=== PATIENT | female | born 1945 | race Caucasian/White ===

== ENCOUNTER 2020-08-10 16:22 | Outpatient (CLI) | payer OTHER, SELFPAY ==
--- NOTE | ~2020-08-10 | MM_ITS ---
EXAMINATION: MM screening bhaskar BI w kelvin HISTORY: Screening mammogram TECHNIQUE: Craniocaudal and mediolateral oblique 3-D tomosynthesis images were obtained and synthetic 2-D images were generated. Right rotated lateral cc view. CAD analysis was submitted and interpreted . COMPARISON: 07/30/2019 bilateral diagnostic digital mammogram and Limited bilateral breast ultrasound 07/28/2019, 07/14/2018, 07/09/2017 bilateral digital screening mammogram examinations BREAST PARENCHYMAL COMPOSITION: There are scattered areas of fibroglandular density. FINDINGS: Occasional benign calcifications. There is no evidence of suspicious mass, calcification, o r architectural distortion to suggest malignancy in either breast. There has been no suspicious inter francesco change. IMPRESSION: 1. No mammographic evidence of malignancy. 2. Recommend routine screening mammography in one year. BI-RADS Category 2: Benign finding(s). Reviewed, dictated and finalized at location A. STANT NURSE MANAGER
== END 2020-08-10 16:23 | disposition home or self-care (01) ==
LOC: ANHIMG 16:28
PROVIDERS: PCP Emergency Medicine; Visit Provider Emergency Medicine
DX: Z12.31 Encounter for screening mammogram for malignant neoplasm of breast (principal)
CPT/HCPCS: 77063; 77067

== ENCOUNTER 2020-08-15 16:12 | Emergency (ER) | payer OTHER, SELFPAY ==
--- NOTE | ~2020-08-15 | XR_ITS ---
EXAMINATION: XR tibia fibula RT 2V INDICATION: Bilateral knee pain TECHNIQUE: Two views of the right tibia and fibula are obtained on three radiographs. COMPARISON: None available FINDINGS: There is mild irregularity of the lateral tibial plateau which extends to the tibial spine. A large knee joint effusion is present. No additional acute osseous abnormality is identified. IMPRESSION: 1. Likely mildly depressed lateral tibial plateau fracture with large joint effusion. Reviewed, dictated and finalized at location A. K PACKER IMPRESSION: 1. Likely mildly depressed lateral tibial plateau fracture with large joint eff usion.
--- NOTE | ~2020-08-15 | XR_ITS ---
EXAMINATION: XR knee RT min 4V DATE: 08/15/2020 17:50 INDICATION: Lateral knee pain, initial encounter TECHNIQUE: Four views of the right knee were obtained. COMPARISON: 11/25/2018 FINDINGS: There is mild irregularity of the lateral tibial plateau which extends to the tibial spine. A large knee joint effusion is present. There is mild osteoarthritis of the knee. IMPRESSION: 1. Likely mildly depressed lateral tibial plateau fracture with large joint effusion. Reviewed, dictated and finalized at location A. TER PILOT IMPRESSION: 1. Likely mildly depressed lateral tibial plateau fracture with large joint eff usion.
[2020-08-15 16:14] VITALS: BP 135/85; PULSE 71; RESP 16; O2SAT 100
--- NOTE | 2020-08-15 16:15 | ED.LOWEXIN ---
HPI - Extremity Injury (Lower) General Chief Complaint: Extremity Injury, Lower Stated Complaint: fall R knee injury Time Seen by Provider: 08/15/20 16:15 Source: patient Mode of arrival: EMS Limitations: no limitations History of Present Illness HPI Narrative: Patient presents via EMS for evaluation of a ground level fall. Patient was standing on a stepstool in the bathroom when she lost her footing as the stool began to move. Patient denies any associated chest pain, palpitations, lightheadedness or dizziness, now reporting right knee pain only. Pt did not hit her head, no LOC. Pt able to wait for her to get home, and then EMS was called to transport her to the hospital. Pain is described as constant, severe pain in her right knee. Radiated into the back of knee. No bruising. No history of injury to this knee in the past. Related Data Home Medications Medication Instructions Recorded Confirmed alprazolam 0.5 mg tablet 0.5 mg PO BID PRN 08/17/19 Allergies Allergy/AdvReac Type Severity Reaction Status Date / Time No Known Allergies Allergy Verified 08/15/20 16:19 Review of Systems Review of Systems: Narrative: CONSTITUTIONAL: Denies fever CARDIOVASCULAR: Denies chest pain RESPIRATORY: Denies cough or dyspnea. GASTROINTESTINAL: Denies abdominal pain SKIN: Denies rash MUSCULOSKELETAL: Denies back pain, denies hip pain, reports right knee pain NEUROLOGIC: Denies headache PMFSH Past Medical History Medical History (Updated 08/15/20 @ 18:51 by Roopa Trinidad MD) HLD (hyperlipidemia) Osteoporosis Family History Family History Mother Family history of congestive heart failure, Onset Age: 75 Other Diabetes mellitus Family history of heart disease in male family member before age 55 Hypertension Social History Social History Smoking status: Never smoker Alcohol intake: never Exam Narrative: Exam Narrative: GENERAL: Awake, alert, conversant HEAD: Normocephalic, atraumatic. EYES: PERRLA and EOMI. ENT: Nares clear, no rhinorrhea or epistaxis. Mucous membranes moist. NECK: Supple. CHEST: No respiratory distress, breathing even and non labored HEART: Regular rate, sinus rhythm ABDOMEN:Non distended, non tender EXTREMITIES: Limited active ROM in the right knee due to pain. Mild edema, no ecchymoses or laceration. Patella is midline. SKIN: Warm, dry, no rash. NEURO:No focal deficits. Alert and oriented x3 Course Vital Signs Vital signs: Vital Signs Pulse Rate 71 08/15/20 16:14 Respiratory Rate 16 08/15/20 16:14 Blood Pressure 135/85 08/15/20 16:14 Pulse Oximetry 100 08/15/20 16:14 Pulse Rate 71 08/15/20 16:14 Respiratory Rate 16 08/15/20 16:14 Blood Pressure 135/85 08/15/20 16:14 Pulse Oximetry 100 08/15/20 16:14 MDM - Extremity Injury (Lower) MDM Narrative Medical decision making narrative: Patient with a mild tibial plateau fracture of the right knee from fall. Patient placed in a new immobilizer. Dr. Hernandez was called, imaging discussed, patient is okay to follow-up in office. Patient neurovascularly intact. Was discharged home in knee immobilizer with crutches. Differential Diagnosis Differential diagnosis: Likely acute internal derangement of knee Imaging Data Radiologist's impression: ITS Impressions Knee X-Ray 08/15/20 18:25 IMPRESSION: 1. Likely mildly depressed lateral tibial plateau fracture with large joint effusion. Tibia/Fibula X-Ray 08/15/20 18:29 IMPRESSION: 1. Likely mildly depressed lateral tibial plateau fracture with large joint effusion. Discharge Plan Discharge Clinical Impression: Fracture of tibial plateau, closed Qualifiers: Encounter type: initial encounter Laterality: right Qualified Code(s): S82.141A - Displaced bicondylar fracture of right tibia, initial encounter
[2020-08-15] MEDS: ONDANSETRON INJ 4 MG/2 ML VIAL IV PUSH (17:15)
[2020-08-15] MEDS: MORPHINE SULFATE (*CRX) 4 MG/ML INJ IV PUSH (17:16)
[2020-08-15] MEDS: SODIUM CHLORIDE 0.9% IV 1,000 ML 999 ML IV CONT (17:16)
[2020-08-15 19:41] VITALS: BP 120/71; PULSE 74; RESP 18; O2SAT 100
== END 2020-08-15 19:43 | disposition home or self-care (01) ==
PROVIDERS: Emergency Provider Emergency Medicine; PCP Emergency Medicine
DX: S82.141A Displaced bicondylar fracture of right tibia, initial encounter for closed fracture (principal); E78.5 Hyperlipidemia, unspecified; M81.0 Age-related osteoporosis without current pathological fracture; W17.89XA Other fall from one level to another, initial encounter
CPT/HCPCS: 73564; 73590; 96361; 96374; 96375; 99284; J2270; J2405; J7030

== ENCOUNTER 2021-02-13 11:45 | Outpatient (CLI) | payer OTHER, SELFPAY ==
--- NOTE | ~2021-02-13 | US_ITS ---
EXAMINATION:US venous doppler LE RT INDICATION:Right leg swelling TECHNIQUE: Multiple grayscale, color flow and Doppler images of the right lower extremity deep venous systems were obtained and reviewed. COMPARISON:No prior studies for comparison FINDINGS: The common femoral, superficial femoral and popliteal veins demonstrate normal respiratory variation, augmentation and compressibility. Color flow is also seen within the posterior tibial, pe roneal, greater saphenous and profunda veins. IMPRESSION: 1: No lower extremity deep venous thrombosis. Reviewed, dictated and finalized at location B.
== END 2021-02-13 11:46 | disposition home or self-care (01) ==
LOC: ANHIMG 11:46
PROVIDERS: PCP Emergency Medicine; Visit Provider Emergency Medicine
DX: M79.604 Pain in right leg (principal); R60.9 Edema, unspecified
CPT/HCPCS: 93971

== ENCOUNTER 2021-09-18 16:03 | Outpatient (CLI) | payer OTHER, SELFPAY ==
--- NOTE | ~2021-09-18 | MM_ITS ---
EXAMINATION: MM screening bhaskar BI w kelvin HISTORY: Screening TECHNIQUE: Craniocaudal and mediolateral oblique 3-D tomosynthesis images were obtained and synthetic 2-D images were generated. CAD analysis was submitted and interpreted. COMPARISON: Comparison to multiple prior studies sequentially, with oldest reviewed study dated 12/2015. BREAST PARENCHYMAL COMPOSITION: There are scattered areas of fibroglandular density. FINDINGS: There are developing asymmetries in the lower inner quadrant of the right breast, middle th ird. The left breast is stable without evidence for malignancy. IMPRESSION: 1. Developing right breast asymmetries. 2. Additional mammographic views and possible breast ultrasound are recommended. BI-RADS Category 0: Incomplete: Needs additional imaging evaluation. Reviewed, dictated and finalized at location A. IT NEGOTIATOR IMPRESSION: 1. Developing right breast asymmetries. 2. Additional mammographic views and possible breast ultrasound are recommended . BI-RADS Category 0: Incomplete: Needs additional imaging evaluation.
== END 2021-09-18 16:04 | disposition home or self-care (01) ==
PROVIDERS: PCP Emergency Medicine; Visit Provider Emergency Medicine
DX: Z12.31 Encounter for screening mammogram for malignant neoplasm of breast (principal); R92.8 Other abnormal and inconclusive findings on diagnostic imaging of breast
CPT/HCPCS: 77063; 77067

== ENCOUNTER 2021-10-12 12:05 | Outpatient (CLI) | payer OTHER, SELFPAY ==
--- NOTE | ~2021-10-12 | MMUS_ITS ---
EXAMINATION: MM diagnostic bhaskar RT w kelvin, US breast RT limited HISTORY: Developing right breast asymmetries reported on 09/18/2020 screening mammogram examination TECHNIQUE: Additional 3-D tomosynthesis images of the right breast were performed and synthetic 2-D i mages were generated. CAD analysis was submitted and interpreted. High resolution upper inner and low er inner right breast ultrasound was performed. COMPARISON: 09/18/2021, 08/10/2020 bilateral screening mammogram examinations FINDINGS: MAMMOGRAPHIC FINDINGS: A new 5 mm mass is present in the lower mid right breast slightly medial to the mid sagittal plane. ULTRASOUND: 12:00 2 cm from nipple: Parallel circumscribed hypoechoic approximately 2.1 x 5.7 x 4.5 mm hypoechoic lesion with central fatty density, likely a small lymph node. 5- 6:00 1 cm from nipple: There is an irregular antiparallel hypoechoic lesion with posterior shadowi ng, measuring up to 3.7 mm width, 4.7 mm in depth. Ultrasound-guided biopsy is recommended. IMPRESSION: 1. Suspicious antiparallel irregular hypoechoic up to 5.7 mm mass at 5-6:00 1 cm from nipple 2. Ultrasound-guided biopsy is recommended BI-RADS category 4, suspicious findings. Dr. Rashid telephoned the report and ultrasound guided biopsy recommendation on 10/12/[address] Live' answering service, with request for callback to confirm receipt of the report and biop sy recommendation. Reviewed, dictated and finalized at location B. OING INSPECTOR IMPRESSION: 1. Suspicious antiparallel irregular hypoechoic up to 5.7 mm mass at 5-6:00 1 c m from nipple 2. Ultrasound-guided biopsy is recommended BI-RADS category 4, suspicious findings. Dr. Rashid telephoned the report and ultrasound guided biopsy recommendation on at [address] Live' answering service, with request for callba ck to confirm receipt of the report and biopsy recommendation.
== END 2021-10-12 12:06 | disposition home or self-care (01) ==
PROVIDERS: PCP Emergency Medicine; Visit Provider Emergency Medicine
DX: N64.89 Other specified disorders of breast (principal); N63.15 Unspecified lump in the right breast, overlapping quadrants
CPT/HCPCS: 76642; 77061; 77065; G0279

== ENCOUNTER 2021-10-18 08:49 | Outpatient (CLI) | payer OTHER, SELFPAY ==
--- NOTE | ~2021-10-18 | US_ITS ---
EXAMINATION: Consultation US HISTORY: Patient presents for biopsy of a right breast mass TECHNIQUE: Limited right breast ultrasound is performed. FINDINGS: The mass described at the 6:00 location on recent diagnostic workup appears to be contiguou s with a duct near the nipple on the right breast and is anechoic, likely a benign finding. With real -time scanning, a similar finding was seen nearby in the breast. This was discussed with the patient and a follow-up ultrasound in six months will be performed. IMPRESSION: Probably benign dilated duct of the right breast. Follow-up targeted right breast ultrasound in six m [facility] is recommended. BI-RADS category 3, probably benign findings. Reviewed, dictated and finalized at location A. D CARE SPECIALIST IMPRESSION: Probably benign dilated duct of the right breast. Follow-up targeted right emeterio st ultrasound in six months is recommended. BI-RADS category 3, probably benign findings.
== END 2021-10-18 08:50 | disposition home or self-care (01) ==
LOC: ANHIMG 08:54
PROVIDERS: PCP Emergency Medicine; Visit Provider Emergency Medicine
DX: N63.10 Unspecified lump in the right breast, unspecified quadrant (principal); R92.8 Other abnormal and inconclusive findings on diagnostic imaging of breast
CPT/HCPCS: 99199

== ENCOUNTER 2022-02-05 15:10 | Outpatient (CLI) | payer OTHER, SELFPAY ==
--- NOTE | ~2022-02-05 | XR_ITS ---
EXAMINATION: XR knee LT 2V DATE: 02/05/2022 15:28 INDICATION: Left knee pain TECHNIQUE: Two views of the left knee were obtained. COMPARISON: None. FINDINGS: Alignment is normal. No fracture or osteochondral lesion. There is mild tricompartmental os teoarthritis characterized by tiny marginal osteophytes. There is a small joint effusion. Soft tissue s are unremarkable. IMPRESSION: 1. Mild osteoarthritis. Reviewed, dictated and finalized at location F. IMPRESSION: 1. Mild osteoarthritis.
== END 2022-02-05 15:11 | disposition home or self-care (01) ==
PROVIDERS: PCP Emergency Medicine; Visit Provider Emergency Medicine
DX: M17.12 Unilateral primary osteoarthritis, left knee (principal)
CPT/HCPCS: 73560

== ENCOUNTER 2022-04-12 11:49 | Outpatient (CLI) | payer OTHER, SELFPAY ==
--- NOTE | ~2022-04-12 | US_ITS ---
US breast RT limited 04/12/2022 12:26 Indication: Follow-up right breast abnormality Procedure: High-resolution Limited ultrasound of the right breast Comparison: 10/12/2021 Findings: There is a mildly prominent duct located at 6:00, 1 cm from the nipple. No suspicious salud s are identified to suggest malignancy. Impression: 1: No sonographic evidence for malignancy in the right breast. Routine yearly screening mammogram and regular clinical breast examination are recommended. BI-RADS CATEGORY 2 - BENIGN FINDINGS Reviewed, dictated and finalized at location A. Impression: 1: No sonographic evidence for malignancy in the right breast. Routine yearly screening mammogram and regular clinical breast examination are recommended. BI-RADS CATEGORY 2 - BENIGN FINDINGS
== END 2022-04-12 11:50 | disposition home or self-care (01) ==
PROVIDERS: PCP Emergency Medicine; Visit Provider Emergency Medicine
DX: R92.8 Other abnormal and inconclusive findings on diagnostic imaging of breast (principal)
CPT/HCPCS: 76642

== ENCOUNTER 2022-08-13 12:43 | Outpatient (CLI) | payer OTHER, SELFPAY | END 2022-08-13 12:44 | disposition home or self-care (01) | LOC: ANHAUDIO 12:44 | PROVIDERS: PCP Emergency Medicine; Visit Provider Otolaryngology | DX: H91.93 Unspecified hearing loss, bilateral (principal) | CPT/HCPCS: 92557; 92567 ==

== ENCOUNTER 2023-05-16 07:09 | Outpatient (CLI) | payer OTHER, SELFPAY ==
--- NOTE | ~2023-05-16 | MM_ITS ---
EXAMINATION: MM screening bhaskar BI w kelvin HISTORY: Screening TECHNIQUE: Craniocaudal and mediolateral oblique 3-D tomosynthesis images were obtained and synthetic 2-D images were generated. CAD analysis was submitted and interpreted. COMPARISON: 04/12/2022 Limited right breast ultrasound examination 10/2021 diagnostic right mammogram and limited right breast ultrasound 09/18/2021, 08/10/2020 bilateral screening mammogram examinations BREAST PARENCHYMAL COMPOSITION: There are scattered areas of fibroglandular density. FINDINGS: Subtle punctate new grouped microcalcifications are noted in the lower inner quadrant of th e right breast, which appear to be associated with a 7 mm circumscribed mass with lobular outline, po ssibly superficial calcifications associated with fibroadenoma. Diagnostic right mammogram and right breast ultrasound examination are recommended for further evaluation. Occasional scattered bilateral benign microcalcifications are noted. Otherwise there is no evidence of suspicious mass, calcification, or architectural distortion to sug gest malignancy in either breast. There has been no other suspicious interval change. IMPRESSION: 1. New grouped subtle punctate microcalcifications associated with possible 7 mm mass, lower inner ri ght breast 2. Diagnostic right mammogram and right breast ultrasound examination are recommended BI-RADS Category 0: Incomplete: Needs additional imaging evaluation. Reviewed, dictated and finalized at location A. IMPRESSION: 1. New grouped subtle punctate microcalcifications associated with possible 7 m m mass, lower inner right breast 2. Diagnostic right mammogram and right breast ultrasound examination are recom mended BI-RADS Category 0: Incomplete: Needs additional imaging evaluation.
== END 2023-05-16 07:10 | disposition home or self-care (01) ==
PROVIDERS: PCP Emergency Medicine; Visit Provider Emergency Medicine
DX: Z12.31 Encounter for screening mammogram for malignant neoplasm of breast (principal); R92.8 Other abnormal and inconclusive findings on diagnostic imaging of breast
CPT/HCPCS: 77063; 77067

== ENCOUNTER 2023-06-13 11:03 | Outpatient (CLI) | payer OTHER, SELFPAY ==
--- NOTE | ~2023-06-13 | MM_ITS ---
EXAMINATION: MM diagnostic mammo unilat RT HISTORY: Right breast calcifications on screening mammogram TECHNIQUE: Additional 3-D tomosynthesis images of the right breast were performed and synthetic 2-D i mages were generated. Magnification views are also obtained. CAD analysis was submitted and interpret ed. COMPARISON: Prior mammograms dating back to 07/16/2019 BREAST PARENCHYMAL COMPOSITION: There are scattered areas of fibroglandular density. FINDINGS: There are grouped calcifications in the middle/posterior third of the lower inner breast at the 4:00 location, 8 cm from the nipple which are amorphous on the craniocaudal view and linear on t he mediolateral view, consistent with milk of calcium. The associated mass questioned on screening ma mmogram is stable when compared to prior mammograms. IMPRESSION: 1. No mammographic evidence of malignancy. 2. Recommend routine screening mammography in one year. BI-RADS Category 2: Benign finding(s). Reviewed, dictated and finalized at location A.
== END 2023-06-13 11:04 | disposition home or self-care (01) ==
LOC: ANHIMG 11:08
PROVIDERS: PCP Emergency Medicine; Visit Provider Emergency Medicine
DX: R92.8 Other abnormal and inconclusive findings on diagnostic imaging of breast (principal)
CPT/HCPCS: 77065

== ENCOUNTER 2024-04-23 09:25 | Outpatient (CLI) | payer OTHER, SELFPAY ==
--- NOTE | ~2024-04-23 | NM_ITS ---
EXAMINATION: NM erin stress w perfusion DATE: 04/23/2024 11:50 CDT INDICATION: Chest pain TECHNIQUE: Rest images were obtained following intravenous administration of 9.4 mCi Tc99m tetrofosmi n (Myoview). The patient was infused intravenously with Lexiscan (regadenoson). Then, 30.3 mCi Tc99m tetrofosmin (Myoview) was administered intravenously, and stress images were obtained. Data was recon structed into short axis and horizontal and vertical long axis SPECT images. Gated SPECT images were also obtained. COMPARISON: None. FINDINGS: There is no definite reversible or fixed perfusion abnormality to suggest ischemia or infar ction. There is no segmental wall motion abnormality. Left ventricular ejection fraction measures 8 6%. IMPRESSION: 1. No definite ischemia or infarct. 2. Normal left ventricular ejection fraction measuring 86%. Reviewed, dictated and finalized at location B.
--- NOTE | 2024-04-23 09:48 | EST_ITS ---
Patient Info Name: Emily Hudson Age: 78 years : 1945 Gender: Female Ht: 63 in Wt: 167 lbs BSA: 1.86 m2 HR: 57 bpm BP: 143 / 82 mmHg Exam Date: 04/23/2024 10:50 AM Exam Location: Echo Lab Patient Status: Outpatient Admit Date: 04/23/2024 Staff Ordering Physician: Edil Live MD Attending Provider: Edil Live MD Exercise Technologist: Carrol Guerrero [facility] Exercise Physician: Irving Aldana DO Exam Type: CA stress erin w NM Study Info A regadenoson stress test was performed. Summary 1. 1. Negative lexiscan stress test for ischemic ST changes by ECG criteria. 2. 2. Baseline hypertension. 3. 3. Nuclear scan to follow and will be reported separately. Please correlate with it. 4. 4. Patient informed of the above results. Protocol: Lexiscan Stress ECG Details Stage: REST Duration (min): 1 min : 50 sec HR (bpm): 57 SBP (mmHg): 143 DBP (mmHg): 82 Stage: REST Duration (min): 4 min : 52 sec HR (bpm): 55 SBP (mmHg): 143 DBP (mmHg): 82 Stage: STAGE 1 Duration (min): 0 min : 59 sec HR (bpm): 81 SBP (mmHg): 145 DBP (mmHg): 80 Stage: RECOVERY Duration (min): 1 min : 0 sec HR (bpm): 78 SBP (mmHg): 145 DBP (mmHg): 80 Stage: RECOVERY Duration (min): 2 min : 0 sec HR (bpm): 78 SBP (mmHg): 145 DBP (mmHg): 80 Stage: RECOVERY Duration (min): 3 min : 0 sec HR (bpm): 81 SBP (mmHg): 124 DBP (mmHg): 78 Stage: RECOVERY Duration (min): 3 min : 30 sec HR (bpm): 78 SBP (mmHg): 124 DBP (mmHg): 78 Rest HR: 55 bpm Peak HR: 83 bpm Rest Sys BP: 143 mmHg Peak Sys BP: 145 mmHg Max Pred HR: 141 bpm % Max Pred HR: 59 % Target HR: 120 bpm Max RPP: 12,035 bpm*mmHg Termination Reason: Completed protocol Cardiac Symptoms: Shortness of breath Total Time: 1 min : 0 sec Rest Mccurdy BP: 82 mmHg Peak Mccurdy BP: 80 mmHg Total Dose: 0.4 mg Resting ECG Sinus bradycardia. Stress ECG No ST changes. Arrhythmias None. Report Signatures
== END 2024-04-23 09:26 | disposition home or self-care (01) ==
PROVIDERS: PCP Family Medicine; Visit Provider Emergency Medicine
DX: R07.89 Other chest pain (principal); I10 Essential (primary) hypertension
CPT/HCPCS: 78452; 93017; A9502; J2785

== ENCOUNTER 2024-07-05 12:07 | Outpatient (CLI) | payer OTHER, SELFPAY ==
--- NOTE | ~2024-07-05 | DEXA_ITS ---
Bone Density Report Name: DERRICK PUGH Age: 78 Sex: Female Ethnicity: White Date of : 1945 Indication: postmenopausal osteoporosis; height loss; hysterectomy; Referring Provider: ELOISA CEDENO Study: Bone densitometry was performed. Exam Date: July 05, 2024 Accession number: [id number] Bone Density: Region BMD T-score Z-score Classification AP Spine(L1-L4) 0.793 -2.3 0.4 Osteopenia Femoral Neck (Left) 0.589 -2.3 -0.1 Osteopenia Total Hip (Left) 0.786 -1.3 0.8 Osteopenia Femoral Neck (Right) 0.578 -2.4 -0.2 Osteopenia Total Hip (Right) 0.712 -1.9 0.2 Osteopenia Total Hip Mean 0.749 -1.6 0.5 Osteopenia World Health Organization criteria for BMD impression classify patients as: Normal (T-score at or above -1.0), Osteopenia (T-score between -1.0 and -2.5), or Osteoporosis (T-score at or below -2.5). 10-year Fracture Risk(1): Major Osteoporotic Fracture 17% Hip Fracture 5.5% Reported Risk Factors: [place] (), Neck BMD=0.578, BMI=30.5 (1) FRAX(R) Version 3.08. Fracture probability calculated for an untreated patient. Fracture probability may be lower if the patient has received treatment. Previous Exams: Region Exam Age BMD T-score BMD Change BMD Change Date g/cm2 vs Baseline vs Previous AP Spine (L1-L4) 07/05/2024 78 0.793 -2.3 -0.018 (-2.2%) 0.022 (2.9%) 07/16/2019 73 0.771 -2.5 -0.040 (-4.9%) -0.040 (-4.9%) 05/23/2017 71 0.811 -2.1 Total Hip(Left) 07/05/2024 78 0.786 -1.3 -0.026 (-3.2%) -0.063 (-7.4%) 07/16/2019 73 0.849 -0.8 0.036 (4.5%)* 0.036 (4.5%)* 05/23/2017 71 0.813 -1.1 Total Hip(Right) 07/05/2024 78 0.712 -1.9 -0.077 (-9.7%) -0.118 (-14.2% 07/16/2019 73 0.830 -0.9 0.041 (5.2%)* 0.041 (5.2%)* 05/23/2017 71 0.789 -1.3 *Denotes significance at 95% confidence level, LSC for AP Spine = 0.022 g/cm2, LSC for Total Hip = 0.027 g/cm2 Clinical Information Provided by Patient: Has used the following medications: Vitamin D Has the following medical conditions: Hysterectomy Patient maximum height was 64.0 Menopause Age: 29 Onset of menses at age 14 Number of children 2 Impression: The patient has low bone mass, based on the Right Femoral Neck T-score. The patient has an estimated ten-year risk of hip fracture of 5.5% and an estimated ten-year risk of major fracture of 17%, based on the WHO FRAX algorithm. The BMD for the Total Hip(Left) decreased, changing by -7.4% since the last DXA exam. The BMD for the Total Hip(Right) decreased, changing by -14.2% since the last DXA exam. Discussion: BONE DENSITY IS LOW AT ONE OR MORE SKELETAL SITES. THE PATIENT'S BMD AND CLINICAL RISK FACTORS CONTRIBUTE TO THIS PATIENT'S INCREASED RISK OF FRACTURE. This patient's lowest T-score is low at one or more skeletal sites. It meets the World Health Organization's (WHO) criteria for ?low bone mass? (T-score between -1.0 and -2.5). The patient's 10-year risk of hip fracture as calculated by FRAX exceeds the threshold where pharmacological therapy is recommended by the National Osteoporosis Foundation (NOF). However, all treatment decisions require clinical judgment and consideration of individual patient factors, including patient preferences, comorbidities, previous drug use, risk factors not captured in the FRAX model (e.g., frailty, falls, vitamin D deficiency, increased bone turnover, interval significant decline in bone density) and possible under or overestimation of fracture risk by FRAX. The patient should follow a healthful lifestyle (good nutrition with adequate calcium and vitamin D, and appropriate weight-bearing exercise). Follow-Up: Consider a repeat BMD and Vertebral Fracture Assessment (VFA) exam in 2 years or sooner if medically necessary, to reassess this patient's status. Reported by: AMIRA on 07/05/2024 12:34:00 PM. Reviewed, dictated and finalized at location AAlec HERNANDEZ
== END 2024-07-05 12:08 | disposition home or self-care (01) ==
LOC: ANHIMG 12:08
PROVIDERS: PCP Family Medicine; Visit Provider Family Medicine
DX: M81.0 Age-related osteoporosis without current pathological fracture (principal); Z78.0 Asymptomatic menopausal state; M85.88 Other specified disorders of bone density and structure, other site; M85.852 Other specified disorders of bone density and structure, left thigh; M85.851 Other specified disorders of bone density and structure, right thigh
CPT/HCPCS: 77080

== ENCOUNTER 2024-08-16 15:05 | Outpatient (CLI) | payer OTHER, SELFPAY ==
--- NOTE | ~2024-08-16 | MM_ITS ---
EXAMINATION: MM screening bhaskar BI w kelvin HISTORY: Screening TECHNIQUE: Craniocaudal and mediolateral oblique 3-D tomosynthesis images were obtained and synthetic 2-D images were generated. CAD analysis was submitted and interpreted. COMPARISON: Comparison to multiple prior studies sequentially, with oldest reviewed study dated 07/10. BREAST PARENCHYMAL COMPOSITION: Not dense: There are scattered areas of fibroglandular density.. FINDINGS: There is no evidence of suspicious mass, calcification, or architectural distortion to sugg est malignancy in either breast. There has been no suspicious interval change. IMPRESSION: 1. No mammographic evidence of malignancy. 2. Recommend routine screening mammography in one year. BI-RADS Category 1: Negative Reviewed, dictated and finalized at location B. INE TOOL DRESSER
== END 2024-08-16 15:06 | disposition home or self-care (01) ==
LOC: ANHIMG 15:06
PROVIDERS: PCP Family Medicine; Visit Provider Family Medicine
DX: Z12.31 Encounter for screening mammogram for malignant neoplasm of breast (principal)
CPT/HCPCS: 77063; 77067

== ENCOUNTER 2025-08-17 10:23 | Outpatient (CLI) | payer OTHER, SELFPAY ==
--- NOTE | ~2025-08-17 | MM_ITS ---
EXAMINATION: MM screening bhaskar BI w kelvin HISTORY: Screening. TECHNIQUE: Craniocaudal and mediolateral oblique 3-D tomosynthesis images were obtained and synthetic 2-D images were generated. CAD analysis was submitted and interpreted. COMPARISON: 2023 BREAST PARENCHYMAL COMPOSITION: Not Dense: There are scattered areas of fibroglandular FINDINGS: Again seen is evidence of layering calcifications in a macrolobulated nodule on the right. This is consistent with milk of calcium in microcysts. There is a C-shaped, tubular asymmetry in the anterior superior right breast on the MLO view. There are no suspicious calcifications. No unexplained architectural distortion is seen. There are no skin or nipple abnormalities identified. There is no adenopathy seen on the images submitted. IMPRESSION: Questionable appearance on the right for which additional imaging is recommended. BI-RADS 0 - Incomplete - needs additional imaging evaluation Reviewed, dictated and finalized at location C. S MELT OPERATOR IMPRESSION: Questionable appearance on the right for which additional imaging is recommende d. BI-RADS 0 - Incomplete - needs additional imaging evaluation
== END 2025-08-17 10:24 | disposition home or self-care (01) ==
LOC: ANHFOHIMG 10:26
PROVIDERS: PCP Family Medicine; Visit Provider Physician Assistant
DX: Z12.31 Encounter for screening mammogram for malignant neoplasm of breast (principal); R92.8 Other abnormal and inconclusive findings on diagnostic imaging of breast
CPT/HCPCS: 77063; 77067